=== PATIENT | female | born 1960 | race Caucasian/White ===

== ENCOUNTER 2018-11-26 06:33 | Day surgery (SDC) | payer OTHER ==
[2018-11-26] MEDS ORDERED: ROCURONIUM 50 MG INJ (07:00)
[2018-11-26] MEDS ORDERED: SUCCINYLCHOLINE CHLORIDE 100 MG/5 ML SYG IV (07:00)
[2018-11-26] MEDS ORDERED: DEXAMETHASONE 4 MG/ML 5 ML INJ (07:00)
[2018-11-26] MEDS ORDERED: CEFAZOLIN 1 GM INJ (07:00)
[2018-11-26] MEDS ORDERED: METOCLOPRAMIDE 10 MG INJ (07:00)
[2018-11-26] MEDS ORDERED: MIDAZOLAM 1 MG/ML 2 ML INJ IV (07:30)
[2018-11-26] MEDS ORDERED: LEVALBUTEROL (NEB) 1.25 MG/0.5 ML AMP HHN (07:30)
[2018-11-26] MEDS ORDERED: FENTAnyl 50 MCG/ML VIAL IV ×2 (07:30)
[2018-11-26] MEDS ORDERED: HYDROmorphONE 1 MG/5 ML IV SYRINGE IV ×3 (07:30)
[2018-11-26] MEDS ORDERED: FENTAnyl 50 MCG/ML VIAL (07:31)
[2018-11-26] MEDS ORDERED: MIDAZOLAM 1 MG/ML 2 ML INJ (07:32)
[2018-11-26] MEDS ORDERED: PROPOFOL 20 ML (07:32)
[2018-11-26] MEDS ORDERED: LIDOCAINE 2% (SDV) 5 ML INJ (07:34)
[2018-11-26] MEDS ORDERED: ROPIVACAINE 0.5 % 30 ML VIAL (07:35)
[2018-11-26] MEDS ORDERED: ONDANSETRON 4 MG INJ (07:35)
[2018-11-26] MEDS ORDERED: BACITRACIN/POLYMYXIN 28.35 GM OINT TOP (08:24)
[2018-11-26] MEDS ORDERED: ONDANSETRON 4 MG INJ IV (11:30)
[2018-11-26] MEDS ORDERED: HYDROCODONE/APAP (5/325) TAB PO ×2 (11:30)
[2018-11-26] MEDS ORDERED: morphine 10 MG INJ IV (11:30)
[2018-11-26] MEDS: DIPHENHYDRAMINE 50 MG INJ IV (11:40)
[2018-11-26] MEDS: ONDANSETRON 4 MG INJ IV (11:40)
[2018-11-26] MEDS: MEPERIDINE 25 MG INJ IV (11:40)
== END 2018-11-26 13:40 | disposition home or self-care (01) ==
LOC: SDS 06:33
DX: M75.102 Unspecified rotator cuff tear or rupture of left shoulder, not specified as traumatic (principal); G56.02 Carpal tunnel syndrome, left upper limb
CPT/HCPCS: 29826